=== PATIENT | male | born 1945 | race Caucasian/White ===

== ENCOUNTER 2023-04-02 19:04 | Emergency (ER) | payer OTHER | END 2023-04-02 20:40 | disposition left against medical advice (07) | LOC: ER 19:04 | DX: S49.90XA Unspecified injury of shoulder and upper arm, unspecified arm, initial encounter (principal); Z53.21 Procedure and treatment not carried out due to patient leaving prior to being seen by health care provider; X58.XXXA Exposure to other specified factors, initial encounter; Y93.89 Activity, other specified; Y92.89 Other specified places as the place of occurrence of the external cause; Y99.8 Other external cause status ==